=== PATIENT | male | born 1975 | race Caucasian/White ===

== ENCOUNTER 2018-06-21 11:31 | Emergency (ER) | payer SELFPAY | END 2018-06-21 14:17 | disposition home or self-care (01) | LOC: FTE 14:17 | DX: S40.861A Insect bite (nonvenomous) of right upper arm, initial encounter (principal); S40.862A Insect bite (nonvenomous) of left upper arm, initial encounter; W57.XXXA Bitten or stung by nonvenomous insect and other nonvenomous arthropods, initial encounter; Y92.830 Public park as the place of occurrence of the external cause | CPT/HCPCS: 99283 ==